=== PATIENT | female | born 1980 | race African-American/Black ===

== ENCOUNTER 2017-05-30 12:39 | Emergency (ER) | payer MEDICAID ==
[~2017-05-30] VITALS: Ht 152.4 cm; Wt 98.9 kg
--- NOTE | 2017-05-30 13:31 | Emergency Room Report ---
History of Present Illness General Chief Complaint: Sore Throat Source: Patient Present Illness HPI 36-year-old female presents to the emergency department complaining of 7 on a 10 in severity sore throat x2 days. Patient denies fevers, chills, cough, swollen tonsils. Patient states that both her children have URI symptoms. Patient states he is up-to-date with vaccinations except for the flu.Denies ear pain, high fevers, lethargy, neck pain/stiffness, irritability, photophobia dehydration, N/V/D. Denies Cp, Palpitations, LOC, AMS, seizures, paresthesias, or changes in Hearing or vision, no Sudden severe SYKES. Allergies: Coded Allergies: No Known Allergies (Unverified , 05/30/17) Patient History Past Medical History: see triage record Past Surgical History: none Pertinent Family History: none Last Menstrual Period: 05/11/17 Now: No : 6 Para: 3 Reviewed Nursing Documentation: PMH: Agreed, PSxH: Agreed Nursing Documentation-PMH Past Medical History: No Stated History Review of Systems All Other Systems: negative except mentioned in HPI Physical Exam Vital Signs Date Time Temp Pulse Resp B/P (MAP) Pulse Ox O2 Delivery O2 Flow Rate FiO2 05/30/17 12:43 98.6 70 20 127/73 96 Room Air 98.6 Sp02 EP Interpretation: reviewed, normal General Appearance: no apparent distress, alert, GCS 15, non-toxic Head: normocephalic, atraumatic Eyes: bilateral eye normal inspection, bilateral eye PERRL ENT: hearing grossly normal, normal voice, TMs + canals normal, uvula midline, moist mucus membranes, pharyngeal erythema Neck: full range of motion Respiratory: chest non-tender, lungs clear, normal breath sounds, no respiratory distress, no wheezing, speaking full sentences Cardiovascular #1: regular rate, rhythm Musculoskeletal: back normal, gait/station normal, normal range of motion, non- tender Neurologic: alert, oriented x3, responsive, motor strength/tone normal, sensory intact, speech normal, grossly normal Psychiatric: judgement/insight normal Skin: normal color, no rash, warm/dry, well hydrated Lymphatic: other - subparotid LAD bilaterally. Medical Decision Making PA Attestation Dr. Garcia is my supervising Physician whom patient management has been discussed with. Diagnostic Impression: Primary Impression: Pharyngitis, acute Qualified Codes: J02.9 - Acute pharyngitis, unspecified ER Course 36-year-old female presents to the emergency department complaining of 7 on a 10 in severity sore throat x2 days. Patient denies fevers, chills, cough, swollen tonsils. Patient states that both her children have URI symptoms. Patient states he is up-to-date with vaccinations except for the flu.Denies ear pain, high fevers, lethargy, neck pain/stiffness, irritability, photophobia dehydration, N/V/D. Denies Cp, Palpitations, LOC, AMS, seizures, paresthesias, or changes in Hearing or vision, no Sudden severe SYKES. Ddx considered but are not limited to: pharyngitis, strep, CHECKER/STOCKER, ludwigs angina, URI Vital signs: are WNL, pt. is afebrile H&PE are most consistent with: pharyngitis presumed viral, does not meet centor criteria. ORDERS: None required at this time as the diagnosis is clinical ED INTERVENTIONS: none required at this time. DISCHARGE: At this time pt. is stable for d/c to home. Will provide printed patient care instructions, and any necessary prescriptions. Care plan and follow up instructions have been discussed with the patient prior to discharge. Last Vital Signs Date Time Temp Pulse Resp B/P (MAP) Pulse Ox O2 Delivery O2 Flow Rate FiO2 05/30/17 12:43 98.6 70 20 127/73 96 Room Air 98.6 Disposition: HOME, SELF-CARE Condition: Stable Scripts Acetaminophen* (TYLENOL EXTRA STRENGTH*) 500 Mg Tablet 500 MG ORAL Q6H Y for Mild Pain/Temp > 100.5, #20 TAB 0 Refills Prov: Priyanka Guadarrama 05/30/17 Lidocaine HCl 2% Viscous (Lidocaine HCl 2% Viscous) 100 Ml Solution 10 ML ORAL QID, #120 ML Prov: Priyanka Guadarrama 05/30/17 Patient Instructions: Sore Throat Additional Instructions: Take medications as directed. Follow up with a Primary Care Provider in 3-5 days, even if your symptoms have resolved. --Please review list of primary care clinics, if you do not already have a primary care provider Return sooner to ED if new symptoms occur, or current symptoms become worse. - Please note that this Emergency Department Report was dictated using [employer] care manager technology software, occasionally this can lead to erroneous entry secondary to interpretation by the dictation equipment. Priyanka Guadarrama May 30, 2017 13:31
[2017-05-30] MEDS ORDERED: LIDOCAINE VISC100 ML ORAL (13:32)
[2017-05-30] MEDS ORDERED: TYLENOL EXTRA500 MG ORAL (13:32)
[2017-05-30 14:00] VITALS: BP 124/68
== END 2017-05-30 14:00 | disposition home or self-care (01) ==
LOC: EMR 13:05
DX: J02.9 Acute pharyngitis, unspecified (principal)
CPT/HCPCS: 99283

== ENCOUNTER 2019-04-07 15:51 | Emergency (ER) | payer MEDICAID ==
[~2019-04-07] VITALS: Ht 147.3 cm; Wt 89.4 kg
[~2019-04-07 15:51] MED LIST: LIDOCAINE VISC100 ML ORAL; TYLENOL EXTRA500 MG ORAL
[2019-04-07 16:12] VITALS: BP 133/82
--- NOTE | 2019-04-07 16:54 | Emergency Room Report ---
History of Present Illness General Chief Complaint: Sore Throat Source: Patient Present Illness HPI 38 YO Female presents to the ED c/o 11/[address] x 1 day. Pt. reports cough this am. She reports chills but denies fevers. Pt. reports loss of her voice. She states pain is worse with swallowing. PT. denies neck pain or stiffness. She denies recent travel or ill contacts. She denies swelling of the lips or tongue. She tried hot tea today without relief of her symptoms. Allergies: Coded Allergies: No Known Allergies (Unverified , 05/30/17) Patient History Past Medical History: see triage record Past Surgical History: none Pertinent Family History: none Last Menstrual Period: 03/29/19 Now: No Reviewed Nursing Documentation: PMH: Agreed; PSxH: Agreed Nursing Documentation-PMH Past Medical History: No History, Except For Hx Hypertension: Yes Hx Diabetes: Yes Review of Systems All Other Systems: negative except mentioned in HPI Physical Exam Vital Signs Date Time Temp Pulse Resp B/P (MAP) Pulse Ox O2 Delivery O2 Flow Rate FiO2 04/07/19 15:56 98.1 83 14 133/82 (99) 97 Room Air Sp02 EP Interpretation: reviewed, normal General Appearance: no apparent distress, alert, GCS 15, non-toxic Head: normocephalic, atraumatic Eyes: bilateral eye normal inspection, bilateral eye PERRL ENT: hearing grossly normal, normal pharynx, no angioedema, normal voice, TMs + canals normal, uvula midline, moist mucus membranes, tonsillar swelling, pharyngeal erythema, other - no tonsillar exudates. voice is diminished. Neck: full range of motion, no meningismus, no bony tend Respiratory: lungs clear, normal breath sounds, no wheezing, speaking full sentences Cardiovascular #1: regular rate, rhythm Musculoskeletal: normal range of motion, gait/station normal, non-tender Neurologic: alert, motor strength/tone normal, oriented x3, sensory intact, responsive, speech normal Psychiatric: judgement/insight normal Skin: no rash, normal color, normal inspection Lymphatic: no adenopathy Medical Decision Making PA Attestation Dr. Jackson Is my supervising Physician whom patient management has been discussed with. Diagnostic Impression: Primary Impression: Acute pharyngitis Qualified Codes: J02.0 - Streptococcal pharyngitis ER Course 38 YO Female presents to the ED c/o 11/[address] x 1 day. Pt. reports cough this am. She reports chills but denies fevers. Pt. reports loss of her voice. She states pain is worse with swallowing. PT. denies neck pain or stiffness. She denies recent travel or ill contacts. She denies swelling of the lips or tongue. She tried hot tea today without relief of her symptoms. Ddx considered but are not limited to: pharyngitis, strep, ORTHOPEDIC DESIGNER, ludwigs angina, URI Vital signs: are WNL, pt. is afebrile H&PE are most consistent with: pharyngitis presumed strep. ORDERS: None required at this time as the diagnosis is clinical ED INTERVENTIONS: 8mg Decadron IM DISCHARGE: At this time pt. is stable for d/c to home. Will provide printed patient care instructions, and any necessary prescriptions. Care plan and follow up instructions have been discussed with the patient prior to discharge. Last Vital Signs Date Time Temp Pulse Resp B/P (MAP) Pulse Ox O2 Delivery O2 Flow Rate FiO2 04/07/19 16:12 98.1 72 14 133/82 97 Room Air Disposition: HOME, SELF-CARE Condition: Stable Patient Instructions: Strep Throat Additional Instructions: Take medications as directed. Follow up with a Primary Care Provider in 3-5 days, even if your symptoms have resolved. Return sooner to ED if new symptoms occur, or current symptoms become worse. - Please note that this Emergency Department Report was dictated using [employer] lab teacher technology software, occasionally this can lead to erroneous entry secondary to interpretation by the dictation equipment. Priyanka Guadarrama Apr 07, 2019 16:54
[2019-04-07] MEDS ORDERED: PROMETHAZINE-C118 M1 ORAL (16:55)
[2019-04-07] MEDS ORDERED: IBUPROFEN600 MG ORAL (16:55)
[2019-04-07] MEDS ORDERED: AUGMENTIN 875-1 EAC1 ORAL (16:55)
[2019-04-07] MEDS ORDERED: Dexamethasone 4mg/ml vial IM ONE (17:00)
[2019-04-07 17:14] VITALS: BP 130/82
== END 2019-04-07 17:15 | disposition home or self-care (01) ==
LOC: EMR 16:20
DX: J02.0 Streptococcal pharyngitis (principal); I10 Essential (primary) hypertension; E11.9 Type 2 diabetes mellitus without complications
CPT/HCPCS: 96372; J1100; Z7502; 99283